=== PATIENT | male | born 1990 | race Caucasian/White ===

== ENCOUNTER 2021-12-19 10:25 | Emergency (ER) | payer OTHER ==
[~2021-12-19] VITALS: Ht 167.6 cm; Wt 104.3 kg
--- NOTE | 2021-12-19 10:35 | NUR ---
Pt came in with c/o SOB. 97% saturation on RA. HR at 82. Pt is in the process of moving from and lost his inhaler.
--- NOTE | 2021-12-19 10:36 | NUR ---
Seen and examined by Dr. Rao.
[2021-12-19] MEDS ORDERED: ALBUTEROL SULFATE 2.5 MG/3 ML NEBU NEB ONE (10:45)
[2021-12-19] MEDS ORDERED: IPRATROPIUM BROMIDE 0.5 MG/2.5 ML NEBU NEB ONE (10:45)
--- NOTE | 2021-12-19 10:46 | NUR ---
RT aware of neb tx. Radiology on the way.
[2021-12-19] MEDS ORDERED: ALBUTEROL SULFATE 2.5 MG/3 ML NEBU ONE (10:54)
[2021-12-19] MEDS ORDERED: IPRATROPIUM BROMIDE 0.5 MG/2.5 ML NEBU ONE (10:54)
--- NOTE | 2021-12-19 11:23 | NUR ---
Pt verbalizes feeling better. Breathing tx's done and x-ray. Dr. Rao, re-evaluating the pt.
[2021-12-19] MEDS ORDERED: ALBU2.5V13 NEB (11:24)
[2021-12-19 11:28] VITALS: BP 126/84
== END 2021-12-19 11:30 | disposition home or self-care (01) ==
LOC: ER 10:25
DX: J45.909 Unspecified asthma, uncomplicated (principal); Z82.5 Family history of asthma and other chronic lower respiratory diseases; F17.200 Nicotine dependence, unspecified, uncomplicated
CPT/HCPCS: 71045; 94640; A4663; J3590

== ENCOUNTER 2024-08-27 21:55 | Emergency (ER) | payer OTHER ==
[~2024-08-27] VITALS: Ht 170.2 cm; Wt 108.9 kg
[~2024-08-27 21:55] MED LIST: ALBU2.5V13 NEB
[2024-08-27] MEDS ORDERED: ZIPRASIDONE MESYLATE 20 MG VIAL IM ONE (22:06)
[2024-08-27] MEDS ORDERED: diphenhydrAMINE 50 MG/1 ML VIAL ONE (22:06)
[2024-08-27] MEDS ORDERED: LORAZEPAM 2 MG/1 ML VIAL ONE (22:06)
[2024-08-27] MEDS: LORAZEPAM 2 MG/1 ML VIAL IM ONE (22:18)
[2024-08-27] MEDS: diphenhydrAMINE 50 MG/1 ML VIAL IM ONE (22:18)
[2024-08-27] MEDS: ZIPRASIDONE MESYLATE 20 MG VIAL IM ONE (22:18)
[2024-08-27 22:52] LABS: BASOPHILS % (AUTO) 0.5 % (0.0-2.0); EOSINOPHILS # (AUTO) 0.3 K/uL (0.0-0.7); HEMATOCRIT 40.2 % (36.7-47.1); HEMOGLOBIN 13.9 g/dL (12.5-16.3); LYMPHOCYTES # (AUTO) 1.9 K/uL (0.8-4.8); LYMPHOCYTES % (AUTO) 26.4 % (20.5-51.5); MEAN CORPUSCULAR HEMOGLOBIN 28.4 uug (23.8-33.4); MEAN CORPUSCULAR HGB CONC 35 g/dL (32.5-36.3); MEAN CORPUSCULAR VOLUME 82.2 fL (73.0-96.2); MONOCYTES # (AUTO) 0.4 K/uL (0.1-1.30); MONOCYTES % (AUTO) 6.3 % (0.0-11.0); NEUTROPHILS # (AUTO) 4.5 K/uL (1.8-8.9); NEUTROPHILS % (AUTO) 62.8 % (38.5-71.5); PLATELET COUNT (AUTO) 201 K/uL (152-348); RED CELL DISTRIBUTION WIDTH 13.5 % (12.1-16.2); WHITE BLOOD COUNT (AUTO) 7.1 K/uL (3.6-10.2)
[2024-08-27 23:01] LABS: CALCIUM 9.3 mg/dL (8.5-10.1); CARBON DIOXIDE 23 mmol/L (21-32); CHLORIDE 107 mmol/L (98-107); CREATININE 0.7 mg/dL (0.6-1.3); GLUCOSE 91 mg/dL (74-106); POTASSIUM 4.4 mmol/L (3.5-5.1); SODIUM SERUM 144 mmol/L (136-145); UREA NITROGEN, BLOOD 5 mg/dL (7-18)
[2024-08-27 23:07] LABS: ALANINE AMINOTRANSFERASE 42 U/L (16-63); ALBUMIN 4.2 g/dL (3.4-5.0); ALKALINE PHOSPHATASE 64 U/L (50-136); ASPARTATE AMINOTRANSFERASE 49 U/L (15-37); TOTAL PROTEIN, SERUM 7.6 g/dL (6.4-8.2)
[2024-08-27 23:11] LABS: *BILIRUBIN,URIN NEGATIVE (NEGATIVE); *BLOOD, URINE NEGATIVE (NEGATIVE); *CLARITY,URINE CLEAR (CLEAR); *COLOR,URINE YELLOW (YELLOW); *KETONES,URINE NEGATIVE (NEGATIVE); *PROTEIN,URINE NEGATIVE (NEGATIVE); *UROBILINOGEN,URINE 0.2 E.U./dl (NORMAL); LEUKOCYTE ESTERASE ,URINE NEGATIVE (NEGATIVE); NITRITE, URINE NEGATIVE (NEGATIVE); UGLUCOSE NEGATIVE (NEGATIVE)
[2024-08-27 23:12] LABS: ACETAMINOPHEN < 10.0 ug/mL (10-30)
[2024-08-27 23:19] LABS: *AMPHETAMINE, URINE NEGATIVE (NEGATIVE); *BARBITURATE, URINE NEGATIVE (NEGATIVE); *BENZODIAZEPINE, URINE POSITIVE (NEGATIVE); *CANNABINOID, URINE POSITIVE (NEGATIVE); *COCCAINE, URINE NEGATIVE (NEGATIVE); *OPIATE, URINE NEGATIVE (NEGATIVE); *PHENCYCLIDINE SCREEN,URINE NEGATIVE (NEGATIVE); FENTANYL, URINE NEGATIVE (NEGATIVE)
[2024-08-27] MEDS: ZIPRASIDONE MESYLATE 20 MG VIAL IM STA (23:20)
[2024-08-28] MEDS ORDERED: LORAZEPAM 2 MG/1 ML VIAL ONE (00:21)
[2024-08-28] MEDS ORDERED: diphenhydrAMINE 50 MG/1 ML VIAL ONE (00:21)
[2024-08-28] MEDS: diphenhydrAMINE 50 MG/1 ML VIAL IM ONE (00:28)
[2024-08-28] MEDS: LORAZEPAM 2 MG/1 ML VIAL IM ONE (00:28)
[2024-08-28] MEDS: IV NS 1000 ML 1,000 ML IV ONE (07:13)
[2024-08-28 09:23] VITALS: BP 146/78; TEMP 97.6; O2SAT 96
== END 2024-08-28 09:24 | disposition home or self-care (01) ==
LOC: ER 21:55
DX: R45.1 Restlessness and agitation (principal); F10.129 Alcohol abuse with intoxication, unspecified; J45.909 Unspecified asthma, uncomplicated; Z65.3 Problems related to other legal circumstances; Y90.6 Blood alcohol level of 120-199 mg/100 ml
CPT/HCPCS: 80053; 81003; 85025; 36415 ×2; 99285; 80299; 80320 ×2; 80307; 96360; 96372 ×2; 98960; J1200 ×2; J2060 ×2; J3486; A4606; A4663; G0480